=== PATIENT | male | born 1975 | race Caucasian/White ===

== ENCOUNTER 2017-08-24 15:38 | Inpatient (IN) | payer OTHER ==
[~2017-08-24] VITALS: Ht 152.4 cm; Wt 35.8 kg
[~2017-08-24 15:38] MED LIST: INDOCIN50 MG PO; NOHOMEMEDS
[2017-08-24 16:41] LABS: HEMATOCRIT 45.6 % (38.0-50.0); HEMOGLOBIN 16.3 G/DL (12.5-16.6); MCH 35.4 PG (29.0-34.0); MCHC 35.7 G/DL (30.0-36.0); MCV 98.9 FL (86-99); PLATELET COUNT 192 K/uL (156-360); RBC DIS.WIDTH-CV 11.6 % (11.8-14.6); RBC DIS.WIDTH-SD 42.5 % (39-53); RED BLOOD COUNT 4.61 M/uL (4.00-5.50); WHITE BLOOD COUNT 11.6 K/uL (4.1-10.2)
[2017-08-24 16:42] LABS: ALBUMIN 4.7 g/dL (3.2-4.8); CHLORIDE 99 mEq/L (99-109); POTASSIUM 3.9 mEq/L (3.7-5.4)
[2017-08-24 16:43] LABS: SODIUM 138 mEq/L (136-147)
[2017-08-24 16:45] LABS: GLUCOSE 166 mg/dL (70-99); TOTAL PROTEIN 8.1 g/dL (6.4-8.3)
[2017-08-24 16:47] LABS: TOTAL BILIRUBIN 1.3 mg/dL (0.0-1.0)
[2017-08-24 16:48] LABS: ALKALINE PHOSPHATASE 105 IU/L (3-129); CREATININE 0.8 mg/dL (0.6-1.3); GFR ESTIMATE (CALCULATED) > 59 mL/min/ (58.99-99999)
[2017-08-24 16:50] LABS: AST (GOT) 156 IU/L (2-34); UREA NITROGEN (BUN) 6 mg/dL (9-23)
[2017-08-24 16:51] LABS: ALT (GPT) 66 IU/L (3-49)
[2017-08-24 17:46] LABS: DIRECT BILIRUBIN 0.6 mg/dL (0.0-0.3)
[2017-08-24 18:24] LABS: APPEARANCE CLEAR ((CLEAR)); BILIRUBIN NEGATIVE; BLOOD NEGATIVE; COLOR YELLOW ((YELLOW)); GLUCOSE (STRIP) >=500; KETONES 80; LEUKOCYTES NEGATIVE; NITRITE NEGATIVE; PROTEIN (STRIP) 30; SPECIFIC GRAVITY 1.016 (1.000-1.030); UCUL ADDED? NO; UROBILINOGEN 0.2 MG/DL (0.2-1.0)
[2017-08-24 18:48] LABS: SERUM ETHYL ALCOHOL < 10 mg/dL
[2017-08-24 20:16] LABS: CARBON DIOXIDE (BICARBONATE) 23.8 MEQ/L (20-31)
[2017-08-24] MEDS ORDERED: TYLENOL EXTRA500 MG PO (20:20)
[2017-08-24] MEDS ORDERED: CELEXA20 MG PO (20:24)
[2017-08-24 22:28] VITALS: BP 139/91
[2017-08-25 03:47] VITALS: BP 131/62
[2017-08-25 05:56] LABS: INTER. NORMALIZED RATIO 0.9
[2017-08-25 05:58] LABS: PTT 28.7 SEC (25-37)
[2017-08-25 06:19] LABS: ALBUMIN 3.2 G/DL (3.2-4.8); ALKALINE PHOSPHATASE 61 IU/L (3-129); ALT (GPT) 36 IU/L (3-49); AST (GOT) 78 IU/L (2-34); CHLORIDE 108 MEQ/L (99-109); CREATINE KINASE 48 IU/L (1-294); CREATININE 0.6 MG/DL (0.6-1.3); GFR ESTIMATE (CALCULATED) > 59 mL/min/ (58.99-99999); MAGNESIUM 1.4 mg/dl (1.3-2.7); POTASSIUM 3.5 MEQ/L (3.7-5.4); SODIUM 140 MEQ/L (136-147); TOTAL BILIRUBIN 1.2 MG/DL (0.0-1.0); TOTAL PROTEIN 5.1 G/DL (6.4-8.3); UREA NITROGEN (BUN) 5 mg/dL (9-23)
[2017-08-25 06:22] LABS: GLUCOSE 83 mg/dL (70-99)
[2017-08-25 06:39] VITALS: BP 102/68
[2017-08-25 10:06] LABS: HEMOGLOBIN A1c (GLYCOHEMOGLOB) 4.9 % (Below 5.7)
[2017-08-25 11:31] VITALS: BP 110/77
[2017-08-25] MEDS ORDERED: ADVIL200 MG PO (13:35)
[2017-08-25] MEDS ORDERED: FOLIC ACID1 MG PO (13:38)
[2017-08-25] MEDS ORDERED: THERAGRAN1 TABLET PO (13:39)
[2017-08-25] MEDS ORDERED: VITAMIN B-1100 MG PO (13:39)
[2017-08-25] MEDS ORDERED: LIBRIUM25 MG PO (13:41)
== END 2017-08-25 14:45 | disposition home or self-care (01) | DRG 897 ==
LOC: EME 15:38 → EDOF 20:23 → ENRESERV 20:29 → 5EAST 21:33
PROVIDERS: Hospitalist; Physician Assistant; Physician Assistant Medical
DX: F10.239 Alcohol dependence with withdrawal, unspecified (principal); E87.2 Acidosis; R64 Cachexia; E87.6 Hypokalemia; Y90.0 Blood alcohol level of less than 20 mg/100 ml; R74.0 Nonspecific elevation of levels of transaminase and lactic acid dehydrogenase [LDH]; R73.9 Hyperglycemia, unspecified; R63.0 Anorexia; F32.9 Major depressive disorder, single episode, unspecified; F41.9 Anxiety disorder, unspecified; F70 Mild intellectual disabilities; F17.220 Nicotine dependence, chewing tobacco, uncomplicated; Z68.1 Body mass index [BMI] 19.9 or less, adult; Q86.0 Fetal alcohol syndrome (dysmorphic); Z91.5 Personal history of self-harm; Z83.3 Family history of diabetes mellitus; Z80.1 Family history of malignant neoplasm of trachea, bronchus and lung
CPT/HCPCS: 36600; 80053; 80076; 81003; 82248; 82550; 82803; 82948; 83036; 83605; 83735; 84100; 85027; 85610; 85730; 99281; 99285; G0480; J2060; J3411; J7030; J7120